=== PATIENT | male | born 1985 | race Caucasian/White ===

== ENCOUNTER 2022-12-20 10:24 | Emergency (ER) | payer BC ==
[2022-12-20] MEDS ORDERED: DEXAMETHASONE SOD PHOSPHATE 10 MG/ML 1 ML VIAL IM STA (10:54)
[2022-12-20] MEDS ORDERED: ALBUTEROL NEBULIZED 2.5 MG/3 ML INHALATION STA (11:07)
--- NOTE | 2022-12-20 11:10 | ED ---
URI HPI - General Chief Complaint: Upper Respiratory Infection Stated Complaint: Chest pains Time Seen by Provider: 12/20/22 10:45 Source: patient Mode of arrival: ambulatory - History of Present Illness Initial Comments: Patient is a 37-year-old male who presents to the emergency department for upper respiratory symptoms. Patient had a positive COVID-19 test on Sunday his sy mptoms started on Sunday night including fatigue, fever, shortness of breath with exertion, loss of appetite, loss of taste and smell, cough. Patient states the symptoms are improving but he continues to feel fatigued and short of breath with exertion. Denies leg pain and swelling. He denies any recent fever. He also continues to have cough which he states is intermittently productive. States his chest feels heavy denies pain. Denies nausea and vomiting. Denies history of asthma and COPD. Patient also requesting rash for his psoriasis states he has history and cannot get into his primary care provider's office for another 3 weeks. States he usually takes Clobetasol which works well for him. - Related Data Previous Rx's Medication Instructions Recorded Albuterol Inhaler [Ventolin Hfa 2 puff INHALATION TID #8 gm 12/20/22 Inhaler] Clobetasol Propionate [Temovate 1 applic TOPICAL DAILY PRN #1 each 12/20/22 0.05% Oint] methylPREDNISolone Dose Pack 4 mg PO DIRECTED #1 packet 12/20/22 [Medrol Dose Pack] Allergies Allergy/AdvReac Type Severity Reaction Status Date / Time No Known Allergies Allergy Verified 12/20/22 10:41 Review of Systems ROS Statement: Those systems with pertinent positive or pertinent negative responses have been documented in the HPI. ROS Other: All systems not noted in ROS Statement are negative. Past Medical History History of Any Multi-Drug Resistant Organisms: None Reported Past Psychological History: No Psychological Hx Reported Smoking Status: Former smoker Past Alcohol Use History: None Reported Past Drug Use History: Marijuana General Exam General appearance: alert Eye exam: Present: normal appearance, PERRL, EOMI. Absent: scleral icterus, conjunctival injection, periorbital swelling Respiratory exam: Present: rhonchi. Absent: normal lung sounds bilaterally, respiratory distress, wheezes, rales, stridor, chest wall tenderness, decreased breath sounds, prolonged expiratory Cardiovascular Exam: Present: regular rate, normal rhythm, normal heart sounds. Absent: systolic murmur, diastolic murmur, rubs, gallop, clicks Extremities exam: Present: normal inspection, full ROM, normal capillary refill Neurological exam: Present: alert Psychiatric exam: Present: normal affect, normal mood Skin exam: Present: warm, dry, intact, normal color, rash (psoriasis ) Course Vital Signs 12/20/22 12/20/22 12/20/22 10:31 11:05 11:18 Temperature 98.2 F Pulse Rate 105 H 94 84 Respiratory 16 Rate Blood Pressure 136/87 O2 Sat by Pulse 99 98 Oximetry 12/20/22 11:27 Temperature Pulse Rate 78 Respiratory Rate Blood Pressure O2 Sat by Pulse Oximetry Medical Decision Making - Medical Decision Making EKG taken at 10:59, interpreted by myself Sinus rhythm with sinus arrhythmia Ventricular rate 83, NM interval 131, QRS duration 85, QTC 418 Was pt. sent in by a medical professional or institution (, PA, DIRECTOR OF CLAIMS, urgent care, hospital, or custodial...) When possible be specific @ -No Did you speak to anyone other than the patient for history (EMS, parent, family, police, friend...)? What history was obtained from this source @ -No Did you review nursing and triage notes (agree or disagree)? Why? @ -I reviewed and agree with nursing and triage notes Were old charts reviewed (outside hosp., previous admission, EMS record, old EKG, old radiological studies, urgent care reports/EKG's, custodial records)? Report findings @ -No old charts were reviewed Differential Diagnosis (chest pain, altered mental status, abdominal pain women, abdominal pain men, vaginal bleeding, weakness, fever, dyspnea, syncope, headache, dizziness, GI bleed, back pain, seizure, CVA, palpatations, mental health)? @ -Differential Dyspnea: Coronary syndrome, arrhythmia, tamponade, asthma, COPD, pulmonary embolism, pneumonia, pneumothorax, pulmonary effusion, anaphylaxis, diabetic ketoacidosis, flailed chest, pulmonary contusion, diaphragmatic rupture, anemia, neuromuscular, this is not meant to be an all-inclusive list. EKG interpreted by me (3pts min.). @ -As above X-rays interpreted by me (1pt min.). @ -No acute cardiopulmonary process CT interpreted by me (1pt min.). @ -None done U/S interpreted by me (1pt. min.). @ -None done What testing was considered but not performed or refused? (CT, X-rays, U/S, labs)? Why? @ -None What meds were considered but not given or refused? Why? @ -None Did you discuss the management of the patient with other professionals (professionals i.e. , PA, DIRECTOR OF CLAIMS, lab, RT, psych nurse, dialysis social worker, craniologist, teacher, workplace rehabilitation officer, senior case manager)? Give summary @ -No Was smoking cessation discussed for >3mins.? @ -No Was critical care preformed (if so, how long)? @ -No Were there social determinants of health that impacted care today? How? (Homelessness, low income, unemployed, alcoholism, drug addiction, transportation, low edu. Level, literacy, decrease access to med. care, long term, rehab)? @ -No Was there de-escalation of care discussed even if they declined (Discuss DNR or withdrawal of care, Hospice)? DNR status @ -No What co-morbidities impacted this encounter? (DM, HTN, Smoking, COPD, CAD, Cancer, CVA, ARF, Chemo, Hep., AIDS, mental health diagnosis, sleep apnea, morbid obesity)? @ -None Was patient admitted / discharged? Hospital course, mention meds given and route, prescriptions, significant lab abnormalities, going to OR and other pertinent info. @ -Patient presented with COVID-19 symptoms. Clinical presentation consistent with acute bronchitis. Chest x-ray interpreted by myself showing no acute cardiopulmonary process. Patient will be discharged with Medrol Dosepak and inhaler for acute bronchitis. Will also send him topical for psoriasis. Discussed return parameters. Undiagnosed new problem with uncertain prognosis? @ -No Drug Therapy requiring intensive monitoring for toxicity (Heparin, Nitro, Insulin, Cardizem)? @ -No Were any procedures done? @ -No Diagnosis/symptom? @ covid 19, acute bronchitis, psoriasis Acute, or Chronic, or Acute on Chronic? @ -acute Uncomplicated (without systemic symptoms) or Complicated (systemic symptoms)? @ -uncomplicated Side effects of treatment? @ -No Exacerbation, Progression, or Severe Exacerbation? @ -No Poses a threat to life or bodily function? How? (Chest pain, [place], NH, pneumonia, PE, COPD, DKA, ARF, appy, cholecystitis, CVA, Diverticulitis, Homicidal, Suicidal, threat to staff... and all critical care pts) @ -No Dr. Wasserman is my attending. Disposition Clinical Impression: Acute bronchitis, COVID-19, Psoriasis Disposition: HOME SELF-CARE Condition: Good Instructions (If sedation given, give patient instructions): Acute Bronchitis (ED) Additional Instructions: Take medication as directed. Please follow-up with your primary care provider in 1-2 days. Return to the emergency department if you experience new, concerning, or worsening symptoms. Prescriptions: methylPREDNISolone Dose Pack [Medrol Dose Pack] 4 mg PO DIRECTED #1 packet Clobetasol Propionate [Temovate 0.05% Oint] 1 applic TOPICAL DAILY PRN #1 each PRN Reason: Rash Albuterol Inhaler [Ventolin Hfa Inhaler] 2 puff INHALATION TID #8 gm Is patient prescribed a controlled substance at d/c from ED?: No Referrals: None,Stated [Primary Care Provider] - 1-2 days
--- NOTE | 2022-12-20 11:19 | XR ---
EXAMINATION TYPE: XR chest 2V DATE OF EXAM: 12/20/2022 COMPARISON: NONE HISTORY: Chest pressure. TECHNIQUE: Frontal and lateral views of the chest are obtained. FINDINGS: There is no focal air space opacity, pleural effusion, or pneumothorax seen. The cardiac silhouette size is within normal limits. The osseous structures are intact. IMPRESSION: No acute cardiopulmonary process.
[2022-12-20 13:15] VITALS: BP 136/87; PULSE 78; RESP 16; TEMP 98.2
== END 2022-12-20 12:18 | disposition home or self-care (01) ==
LOC: EC 10:24
DX: U07.1 COVID-19 (principal); J20.8 Acute bronchitis due to other specified organisms; L40.9 Psoriasis, unspecified; F12.90 Cannabis use, unspecified, uncomplicated; Z87.891 Personal history of nicotine dependence
CPT/HCPCS: 94640; 93005; 71046; 99285; 96372; J1100